=== PATIENT | male | born 1980 | race Caucasian/White ===

== ENCOUNTER 2017-09-25 14:42 | Emergency (ER) | payer BC, SELFPAY ==
--- NOTE | 2017-09-25 16:23 | PC.NURSE ---
AFTER SPEAKING TO PT HE REQUEST TRAMADOL, LAMICTAL AND CT SCAN OF ABD AND FEELS HE NEEDS TO BE SEEN IN THE ED.YANDEL MCDERMOTT
[2017-09-25 16:31] VITALS: BP 119/74; PULSE 85; RESP 20; TEMP 36.9; O2SAT 98; BMI 22.3
[2017-09-25 16:38] LABS: UTC Influenza A Antigen Negative (Negative); UTC Influenza B Antigen Positive (Negative)
--- NOTE | 2017-09-25 17:17 | HMH.EDUTC ---
[facility] [place]: Influenza Disposition: Home, Self-Care Condition on Discharge: Good Instructions: Influenza Additional Instructions: Increase fluids Rest Since discussed with patient If symptoms worsen or do not improve return to be seen in the ER If symptoms worsen follow-up with primary care this week Tamiflu as ordered No work until next Monday Referrals: Elier Kern MD [Primary Care Provider] - Time of Disposition: 17:20 Medical Decision Making Vital Signs: 09/25/17 16:31 Temperature 98.4 F Temperature Source Temporal Artery Scan Pulse Rate [Brachial] 85 Respiratory Rate 20 Blood Pressure [Right Arm] 119/74 Blood Pressure Mean [Right Arm] 89 Blood Pressure Source [Right Arm] Automatic Cuff Blood Pressure Position [Right Arm] Sitting 02 Sat by Pulse Oximetry 98 Oxygen Delivery Method Room Air - Lab Data Lab Results 09/25/17 16:31: Influenza Type A Ag Negative, Influenza Type B Ag Positive A - Vincenzo Inquiry Pt receiving controlled substance: No [facility] [place] General Chief complaint: Urgent [facility] Stated complaint: fever aches all over Time Seen by Provider: 09/25/17 17:17 Mode of Arrival: Ambulatory Source of Information: Patient Limitations: No Limitations Description of Symptoms (Recalled from Triage Doc. by RN): FEVER, RUNNY NOSE, ACHY JOINTS THAT STARTED LAST MONDAY HEENT Symptoms (Recalled from RN notes): Yes Resp Symptoms (Recalled from RN notes): Yes Skin Symptoms (Recalled from RN notes): No MS Symptoms (Recalled from RN notes): No Functional Status (Recalled from RN notes): NA - History of Present Illness Provider Complaint: 37-year-old male presents for fever, body aches, chills, congestion, nausea, and cough since Monday - Related Data Home Medications Medication Instructions Recorded Confirmed No Known Home Medications [No 09/25/17 09/25/17 Known Home Medications] Allergies Allergy/AdvReac Type Severity Reaction Status Date / Time No Known Allergies Allergy Verified 09/25/17 16:29 - Worker's Comp Is this a Worker's Comp case?: No [facility] History I have reviewed the patient's past medical history: Yes - *Social History Alcohol Intake: never - Psychiatric History Expresses thoughts of harming self/others: None Suicide Plan Description: No Plan ROS Obtained: Yes All systems reviewed & no additional complaints - Constitutional Constitutional: Reports system reviewed and no additional complaints, except as docu, Reports body ache, Reports chills, Reports fever(s), Reports malaise - Eyes Eyes: Reports system reviewed and no additional complaints, except as docu - ENT Ears, Nose, Mouth, and Throat: Reports system reviewed and no additional complaints, except as docu - Cardiovascular Cardiovascular: Reports system reviewed and no additional complaints, except as docu - Respiratory Respiratory: Yes system reviewed and no additional complaints, except as docu, Yes chest congestion, Yes cough - Gastrointestinal Gastrointestingal: Reports: system reviewed and no additional complaints, except as docu - Musculoskeletal Musculoskeletal: Reports system reviewed and no additional complaints, except as docu - Integumentary/Breasts Skin/Breast: Reports system reviewed and no additional complaints, except as docu - Neurologic Neurologic: Reports system reviewed and no additional complaints, except as docu - Endocrine Endocrine: Reports system reviewed and no additional complaints, except as docu - Hematologic/Lymphatic Henatologic/Lymphatic: Reports system reviewed and no additional complaints, except as docu - Allergic/Immunologic Allergic/Immunologic: Reports system reviewed and no additional complaints, except as docu Physical Exam - General General appearance: alert, in no apparent distress - Head Head exam: atraumatic, normocephalic - Eye Eye exam: Present: normal appearance,
--- NOTE | 2017-09-25 17:20 | ED_ITS ---
[facility] [place] Clinical Impression: Influenza Disposition: Home, Self-Care Condition on Discharge: Good Instructions: Influenza Additional Instructions: Increase fluids Rest Since discussed with patient If symptoms worsen or do not improve return to be seen in the ER If symptoms worsen follow-up with primary care this week Tamiflu as ordered No work until next Monday Referrals: Elier Kern MD [Primary Care Provider] - Time of Disposition: 17:20 Medical Decision Making Vital Signs: 09/25/17 16:31 Temperature 98.4 F Temperature Source Temporal Artery Scan Pulse Rate [Brachial] 85 Respiratory Rate 20 Blood Pressure [Right Arm] 119/74 Blood Pressure Mean [Right Arm] 89 Blood Pressure Source [Right Arm] Automatic Cuff Blood Pressure Position [Right Arm] Sitting 02 Sat by Pulse Oximetry 98 Oxygen Delivery Method Room Air - Lab Data Lab Results 09/25/17 16:31: Influenza Type A Ag Negative, Influenza Type B Ag Positive A - Vincenzo Inquiry Pt receiving controlled substance: No [facility] [place] HPI - General Chief complaint: Urgent Treatment Center Stated complaint: fever aches all over Time Seen by Provider: 09/25/17 17:17 Mode of Arrival: Ambulatory Source of Information: Patient Limitations: No Limitations Description of Symptoms (Recalled from Triage Doc. by RN): FEVER, RUNNY NOSE, ACHY JOINTS THAT STARTED LAST MONDAY HEENT Symptoms (Recalled from RN notes): Yes Resp Symptoms (Recalled from RN notes): Yes Skin Symptoms (Recalled from RN notes): No MS Symptoms (Recalled from RN notes): No Functional Status (Recalled from RN notes): NA - History of Present Illness Provider Complaint: 37-year-old male presents for fever, body aches, chills, congestion, nausea, and cough since Monday - Related Data Home Medications Medication Instructions Recorded Confirmed No Known Home Medications [No 09/25/17 09/25/17 Known Home Medications] Allergies Allergy/AdvReac Type Severity Reaction Status Date / Time No Known Allergies Allergy Verified 09/25/17 16:29 - Worker's Comp Is this a Worker's Comp case?: No [facility] History I have reviewed the patient's past medical history: Yes - *Social History Alcohol Intake: never - Psychiatric History Expresses thoughts of harming self/others: None Suicide Plan Description: No Plan ROS Obtained: Yes All systems reviewed & no additional complaints - Constitutional Constitutional: Reports system reviewed and no additional complaints, except as docu, Reports body ache, Reports chills, Reports fever(s), Reports malaise - Eyes Eyes: Reports system reviewed and no additional complaints, except as docu - ENT Ears, Nose, Mouth, and Throat: Reports system reviewed and no additional complaints, except as docu - Cardiovascular Cardiovascular: Reports system reviewed and no additional complaints, except as docu - Respiratory Respiratory: Yes system reviewed and no additional complaints, except as docu, Yes chest congestion, Yes cough - Gastrointestinal Gastrointestingal: Reports: system reviewed and no additional complaints, except as docu - Musculoskeletal Musculoskeletal: Reports system reviewed and no additional complaints, except as docu - Integumentary/Breasts Skin/Breast: Reports sys
== END 2017-09-25 17:31 | disposition home or self-care (01) ==
PROVIDERS: Emergency Provider Nurse Practitioner Family; Family Provider Family Medicine; PCP Family Medicine
DX: J11.1 Influenza due to unidentified influenza virus with other respiratory manifestations (principal)
CPT/HCPCS: 87804; 99201

== ENCOUNTER 2023-04-17 15:06 | Emergency (ER) | payer BC, SELFPAY ==
[2023-04-17 15:07] VITALS: BP 167/76; PULSE 77; RESP 18; O2SAT 98; BMI 23.7
[2023-04-17 15:48] LABS: Microscopic, Urine URINE MICROSCOPIC (MICROSCOPIC)
[2023-04-17 16:00] LABS: Basophils % 0.3 % (0.1-2.0); Eosinophils # 0.2 K/mm3 (0.0-0.4); Eosinophils % 1.8 % (0.1-12.0); Hematocrit 43.6 % (42.0-52.0); Lymphocytes # 1.3 K/mm3 (0.7-4.5); Lymphocytes % 12.4 % (10-50); Mean Corpuscular HGB Conc 34.5 g/dL (31.8-35.4); Mean Corpuscular Volume 87.1 fl (80-94); Mean Platelet Volume 8.3 fl (7.4-10.4); Monocytes # 0.3 K/mm3 (0.1-1.0); Monocytes % 2.7 % (1.7-9.3); Neutrophils # 8.5 K/mm3 (1.8-7.8); Neutrophils % 82.8 % (37.0-80.0); Platelet Count 291 K/mm3 (142-424); Red Blood Count 5.01 M/mm3 (4.60-6.20); Red Cell Distribution Width 13.6 % (11.5-17.5); White Blood Count 10.2 K/mm3 (4.8-10.8)
[2023-04-17 16:05] LABS: Appearance,Urine CLEAR (Clear); Blood, Urine 3+ (Negative); Color,Urine YELLOW (Yellow); Glucose,Urine (UA) Negative (Negative); Ketones,Urine TRACE (Negative); Leukocyte Esterase,Urine Negative (Negative); Nitrate,Urine Negative (Negative); PH,Urine 5.5 (5.0-8.5); Protein,Urine 1+ (Negative); Specific Gravity, Urine >= 1.030 (1.005-1.030); Urobilinogen,Urine 0.2 EU/dl (0.2)
[2023-04-17 16:15] LABS: Chloride 108 mmol/L (98-107); Sodium 140 mmol/L (136-145)
[2023-04-17 16:17] LABS: Blood Urea Nitrogen 20 mg/dl (9-20); Creatinine Clearance Estimated 88 mL/min (50-200); Estimated Glomerular Filt Rate 67 ml/min (>60); GFR (African American) 81 ML/MIN (>60)
[2023-04-17 16:18] LABS: Alanine Aminotransferase 31 U/L (12-78); Albumin Level 4.6 g/dl (3.5-5.0); Albumin/Globulin Ratio 1.8 (1.1-1.8); Alkaline Phosphatase 113 U/L (38-126); Aspartate Amino Transferase 31 U/L (17-59); Bilirubin,Total 0.6 mg/dl (0.2-1.3); Calcium 9.8 mg/dl (8.4-10.2); Carbon Dioxide 19 mmol/L (22.0-30.0); Globulin 2.6 g/dL (1.3-3.2); Glucose 162 mg/dl (74-100); Total Protein,Serum 7.2 g/dl (6.3-8.2)
[2023-04-17 16:33] LABS: Bilirubin,Urine 1+ (Negative)
[2023-04-17 16:34] LABS: Bacteria,Urine Trace /lpf; Mucus,Urine 4+ /lpf; RBC,Urine 20-50 #/hpf (0-3); Squamous Epithelial Cell,Urine Occasional #/hpf (0-5); WBC,Urine Occasional #/hpf (0-3)
[2023-04-17 16:47] VITALS: BP 123/69; PULSE 81; RESP 16; TEMP 36.8; O2SAT 97
--- NOTE | 2023-04-17 16:53 | HMH.EDGENADL ---
Discharge Plan Disposition Patient Disposition: Home, Self-Care Condition: Good Prescriptions Prescriptions: New tamsulosin [Flomax] 0.4 mg capsule 0.4 mg PO DAILY Qty: 30 0RF ketorolac 10 mg tablet 10 mg PO Q8H 5 Days Qty: 15 0RF Referrals Follow up/Referrals: Lily Melgar MD [Primary Care Provider] - See instructions Activity Restrictions/Add. Instructions Additional Instructions/Restrictions: Please follow-up with your urologist, please take the pain medication as needed as well as the Flomax, please return with new or worsening symptoms including dehydration, worsening pain, nausea, vomiting, and inability to keep liquids down. Clinical Impressions Clinical Impression: Urolithiasis Qualifiers: Urinary calculus location: kidney and ureter Qualified Code(s): N20.2 - Calculus of kidney with calculus of ureter Stand Alone Forms Stand Alone Forms: Work/School Release Instructions Patient Instructions: DI for Kidney Stones Discharge ED Provider: Shahram Knight Adult [facility] General Chief complaint: PAIN Stated complaint: Left side pain Time Seen by Provider: 04/17/23 16:53 Mode of Arrival: Ambulatory Source of Information: Patient Limitations: No Limitations Description of Symptoms (Recalled from ER Triage Doc. by RN): pt presents to ED stating today around 1300 he started having left sided flank pain. pt reports a hx of kidney stones. pt states his urine appears darker than normal. History of Present Illness HPI narrative: Patient presents for evaluation of left-sided flank pain acute in onset starting today, moderate in severity, with associated dark urine, no fevers or chills or nausea or vomiting, has had similar symptoms associated with urolithiasis in the past that passed spontaneously. Denies pain elsewhere, no previous therapies. No exacerbating or alleviating factors. Denies blood thinners or other chronic medical issues. Denies trauma, denies any midline back pain. Related Data Previous Rx's Medication Instructions Recorded ketorolac 10 mg tablet 10 mg PO Q8H 5 days #15 tabs 04/17/23 tamsulosin 0.4 mg capsule (Flomax) 0.4 mg PO DAILY #30 caps 04/17/23 Allergies Allergy/AdvReac Type Severity Reaction Status Date / Time No Known Allergies Allergy Verified 09/25/17 16:29 [facility] Disclaimer: The information contained in this section may have been updated after the patient was seen, as this information can be updated by other users. Social History Smoking Status: Never smoker alcohol intake: never current occupational status: other Travel in the last 8 weeks: None ROS Obtained: Yes Systems reviewed as appropriate & no additional complaints except as documented Physical Exam General General appearance: alert and in no apparent distress Head Head exam: atraumatic and normocephalic Eye Eye exam: Present normal appearance Neck Neck exam: Present normal inspection Chest Chest inspection: Present normal inspection and symmetric chest wall rise Respiratory Respiratory exam: Present normal lung sounds bilaterally; Absent respiratory distress Cardiovascular Cardiovascular exam: Present regular rate and normal rhythm Abdominal Exam Abdominal exam: Present soft; Absent distention, tenderness, guarding or rebound Back Exam Back exam: Present CVA tenderness (L) Neurological Exam Neurological exam: Present alert and oriented X3 Psychiatric Psychiatric exam: Present normal affect and normal mood Skin Skin exam: Present warm and dry Medical Decision Making Medical Records Medical records reviewed: Yes I reviewed the patient's medical records. Vincenzo Inquiry Pt receiving controlled substance: No Vital Signs: 04/17/23 15:07 04/17/23 16:47 04/17/23 18:11 Temperature 98.3 F 98.0 F Temperature Source Oral Pulse Rate 81 71 Pulse Rate [Right Radial] 77 Respiratory Rate 18 16 17 Blood Pressure 123/69 115/79 Blood Pressure [Right Arm] 167/[address]
--- NOTE | 2023-04-17 18:00 | PC.NURSE ---
rounded on pt, pt reports nausea and pain free at this time, call button in reach, visitor at BS. states no needs at this time
[2023-04-17 18:11] VITALS: BP 115/79; PULSE 71; RESP 17; TEMP 36.7; O2SAT 98
== END 2023-04-17 18:11 | disposition home or self-care (01) ==
PROVIDERS: Emergency Provider Emergency Medicine; PCP Family Medicine
DX: N20.2 Calculus of kidney with calculus of ureter (principal); R10.9 Unspecified abdominal pain
CPT/HCPCS: 80053; 81001; 85025; 96374; 99285

== ENCOUNTER 2023-11-27 21:23 | Emergency (ER) | payer BC, SELFPAY ==
[2023-11-27 21:25] VITALS: BP 107/86; PULSE 117; RESP 24; TEMP 36.7; O2SAT 98; BMI 26.9
--- NOTE | 2023-11-27 21:41 | ED_ITS ---
<Statement entered by Barbara Lebron DO - 11/28/23 14:54> I was consulted by the DEAN, and we discussed the complexity of the problems being addressed. I approved the treatment and management plan for this patient's care in the emergency department, thus performing a substantive portion of the medical decision making. Barbara Lebron DO Discharge Plan Disposition Patient Disposition: Home, Self-Care Condition: Good Prescriptions Prescriptions: New doxycycline hyclate 100 mg capsule 100 mg PO BID 10 Days Qty: 20 0RF No Action tamsulosin [Flomax] 0.4 mg capsule 0.4 mg PO DAILY Qty: 30 0RF ketorolac 10 mg tablet 10 mg PO Q8H 5 Days Qty: 15 0RF Referrals Follow up/Referrals: Lily Melgar MD [Primary Care Provider] - See instructions Activity Restrictions/Add. Instructions Additional Instructions/Restrictions: Follow-up with PCP in 2 to 3 days for reevaluation. Alternate 1000 mg of Tylenol with Motrin every 4 hours as needed for symptoms. Return to ER for any worsening or change of symptoms. Clinical Impressions Clinical Impression: Arthralgia Tick bite of back Qualifiers: Encounter type: initial encounter Qualified Code(s): S30.860A - Insect bite (nonvenomous) of lower back and pelvis, initial encounter Discharge ED Provider: Barbara Lebron General Adult HPI <JAQUELIN Maciel - Last Filed: 11/27/23 22:58> General Chief complaint: Animal Bite Stated complaint: joint pain, fever, headache tick bite Time Seen by Provider: 11/27/23 21:32 Mode of Arrival: Family Vehicle Source of Information: Patient Limitations: No Limitations Description of Symptoms (Recalled from ER Triage Doc. by RN): Found a tick on his back 1 1/2 hrs ago. Stated that his hips have been hurting since yesterday. Had a fever at home that was 100.5 and took ibupofen for that. History of Present Illness HPI narrative: Patient presents for 24-hour history of his bilateral hips hurting . Patient indicates his bilateral inguinal area. Patient also reports a fever of 100.8 yesterday that he took Motrin for. Additionally patient found a tick on his back that he was able to remove intact. Patient denies chest pain shortness of breath chills hemoptysis hematochezia melena nausea vomiting diarrhea. He denies any trauma or excessive physical labor. Related Data Previous Rx's Medication Instructions Recorded ketorolac 10 mg tablet 10 mg PO Q8H 5 days #15 tabs 04/17/23 tamsulosin 0.4 mg capsule (Flomax) 0.4 mg PO DAILY #30 caps 04/17/23 doxycycline hyclate 100 mg capsule 100 mg PO BID 10 days #20 caps 11/27/23 Allergies Allergy/AdvReac Type Severity Reaction Status Date / Time No Known Allergies Allergy Verified 09/25/17 16:29 PFS <JAQUELIN Maciel - Last Filed: 11/27/23 22:58> [facility] Disclaimer: The information contained in this section may have been updated after the patient was seen, as this information can be updated by other users. Social History (Updated 04/18/23 @ 15:34 by Shahram Knight MD) Smoking Status: Never smoker alcohol intake: never current occupational status: other Travel in the last 8 weeks: None <JAQUELIN Maciel - Last Filed: 11/27/23 22:58> ROS Obtained: Yes Systems reviewed as appropriate & no additional complaints except as documented Physical Exam <JAQUELIN Maciel - Last Filed: 11/27/23 22:58> General General appearance: alert and in no apparent distress Head Head exam: atraumatic and normal inspection Eye Eye exam: Present normal appearance, PERRL and EOMI ENT ENT exam: Present normal exam, normal oropharynx and mucous membranes moist Neck Neck exam: Present normal inspection and full ROM; Absent lymphadenopathy Chest Chest inspection: Present normal inspection and symmetric chest wall rise Respiratory Respiratory exam: Present normal lung sounds bilaterally; Absent accessory muscle use Cardiovascular Cardiovascular exam: Present normal rhythm, tachycardia, normal heart sounds, +S1 and +S2 Abdominal Exam Abdominal exam: Present soft and normal bowel sounds; Absent tenderness, guarding or rebound exam: Present normal inspection and normal testicular lie; Absent testicular tenderness, urethral discharge or scrotal swelling Extremities Exam Extremities exam: Present normal inspection and full ROM Back Exam Back exam: Present normal inspection and full ROM Neurological Exam Neurological exam: Present alert, oriented X3 and CN II-XII intact Psychiatric Psychiatric exam: Present normal affect and normal mood Skin Skin exam: Present warm, dry and normal color Lymphatic Lymphatic Findings: no adenopathy Other Other exam information: Spot where tick was removed is marked with a [place]. There is no target lesion there is no erythema there is no rash or visible bite david. Tick is alive in a jar with the patient and all parts appear to be intact. Tick is not engorged with blood and is very small. Palpation of the inguinal area reveals no masses no lymphadenopathy and is nontender to palpation. Medical Decision Making <JAQUELIN Maciel - Last Filed: 11/27/23 22:58> Medical Records Medical records reviewed: Yes I reviewed the patient's medical records. Vincenzo Inquiry Pt receiving controlled substance: No Vital Signs: 11/27/23 21:25 11/27/23 22:58 Temperature 98.1 F 98.0 F Temperature Source Oral Oral Pulse Rate 82 Pulse Rate [Right Radial] 117 H Respiratory Rate 24 19 Blood Pressure 128/86 Blood Pressure [Right Arm] 107/86 L Blood Pressure Mean [Right Arm] 93 Blood Pressure Source Automatic Cuff Blood Pressure Position Sitting 02 Sat by Pulse Oximetry 98 Oxygen Delivery Method Room Air Room Air Lab Data Lab results reviewed: Yes I reviewed the patient's lab results. Lab Results 11/27/23 21:50: WBC 8.3, RBC 4.88, Hgb 14.7, Hct 44.5, MCV 91.3, MCH 30.0, MCHC 32.9, RDW 13.4, Plt Count 200, MPV 8.2, Neut % (Auto) 87.5 H, Lymph % (Auto) 7.6 L, [place] % (Auto) 3.3, Eos % (Auto) 0.9, Baso % (Auto) 0.7, Neut # (Auto) 7.2, L ymph # (Auto) 0.6 L, [place] # (Auto) 0.3, Eos # (Auto) 0.1, Baso # (Auto) 0.1, Total Counted 100, Neutrophils % (Manual) 87 H, Lymphocytes % (Manual) 8 L, Monocytes % (Manual) 5, Platelet Estimate Normal, RBC Morphology Normal, D-Dimer 0.69 H, Sodium 138, Potassium 3.8, Chloride 104, Carbon Dioxide 23, Anion Gap 14.8, BUN 17, Creatinine 1.10, Estimated Creat Clear 109, Estimated GFR 74, Est GFR ( Amer) 89, Glucose 130 H, Calcium 9.3, Total Bilirubin 0.9, AST 30, ALT 45, Alkaline Phosphatase 71, Troponin I < 0.01, C-Reactive Protein 33.2 H, Total Protein 6.8, Albumin 4.4, Globulin 2.4, Albumin/Globulin Ratio 1.8, TSH 0.34 L, Thyroxine (T4) 5.9 11/27/23 22:28: SARS-CoV-2 (PCR) Not detected, Influenza A Untype (PCR) Not detected, Influenza Type B (PCR) Not detected 11/27/23 21:50 11/27/23 21:50 Orders (Tests/Meds): ED MEDICATIONS Discontinued Medications Generic Name Dose Route Start Last Admin Trade Name Freq PRN Reason Stop Dose Admin Acetaminophen 1,000 mg 11/27/23 21:42 11/27/23 21:56 Acetaminophen 1,000mg/100ml Vial IV 11/27/23 21:43 1,000 mg ONCE ONE Administration Doxycycline Hyclate 100 mg 11/27/23 21:54 11/27/23 21:58 Doxycycline Hycl 100 Mg Tablet PO 11/27/23 21:55 100 mg ONCE ONE Administration Lactated Ringer's 1,000 mls @ 999 mls/hr 11/27/23 21:42 11/27/23 21:56 Lactated Ringer's 1000 Ml Bag IV 11/27/23 22:42 999 mls/hr .Q1H1M ONE Administration Ketorolac Tromethamine 15 mg 11/27/23 21:42 11/27/23 21:56 Ketorolac 30mg/Ml Vial IV 11/27/23 21:43 15 mg ONCE ONE Administration ORDERS Category Date Time Status CBC w/Auto Diff [Complete Blood Count Auto Diff] Stat Lab 11/27/23 21:50 Completed CMP [Comprehensive Metabolic Panel] Stat Lab 11/27/23 21:50 Completed CRP [C-Reactive Protein] Stat Lab 11/27/23 21:50 Completed D-Dimer Stat Lab 11/27/23 21:50 Completed Lyme B. burgdorferi PCR Blood Stat Lab 11/27/23 21:50 Received Rapid PCR Covid and Flu A/B Stat Lab 11/27/23 22:28 Completed T4 (Thyroxine) Stat Lab 11/27/23 21:50 Completed TSH [Thyroid Stimulating Hormone] Stat Lab 11/27/23 21:50 Completed Trop I [Troponin I] Stat Lab 11/27/23 21:50 Completed Medical Decision Narrative: In summary patient is a 43-year-old male who presents to the emergency department for evaluation of bilateral hip pain, headache and being bit by a tick. Patient is tachycardic but otherwise hemodynamically stable with an O2 sat of 98% on room air respiratory rate is 24 upon arrival, with a temperature of 98.1. Physical exam is unremarkable and nonfocal including no evidence of lymphadenopathy anywhere, no tenderness to palpation or range of motion testing of his hips, site where tick was is circled by pen line with no evidence of target lesion erythema edema fluctuance.. Differential diagnosis includes arthralgia, tickborne illness viral or bacterial illness, urinary tract infection, kidney stone etc. Initial workup will be conducted with hematologic labs rapid COVID and flu swabs and Lyme titer. Initial interventions include Tylenol and Toradol IV fluid bolus initial workup reviewed by me shows a normal white count with a normal absolute neutrophil count but lymphopenia, patient has an elevated CRP of 33 and a slightly elevated D-dimer but further workup is excluded by years criteria. Upon repeat evaluation patient has had interval improvement of his constitutional symptoms and now has no headache and has reduction in his bilateral hip pain after administration of Toradol Tylenol and a fluid bolus. Tachycardia is now resolving with fluid challenge and he has a heart rate under 120 and is currently around 100 and shows sinus tachycardia on the monitor. COVID and flu tests are negative. Given this we have ruled out any significant life-threatening or serious injury and this is likely represents acute inflammatory response that is responsive to NSAIDs and fluid challenge. Patient have follow-up closely with his PCP return to ER as needed. <Barbara Lebron, DO - Last Filed: 11/28/23 14:55> Vital Signs: 11/27/23 21:25 11/27/23 22:58 Temperature 98.1 F 98.0 F Temperature Source Oral Oral Pulse Rate 82 Pulse Rate [Right Radial] 117 H Respiratory Rate 24 19 Blood Pressure 128/86 Blood Pressure [Right Arm] 107/86 L Blood Pressure Mean [Right Arm] 93 Blood Pressure Source Automatic Cuff Blood Pressure Position Sitting 02 Sat by Pulse Oximetry 98 Oxygen Delivery Method Room Air Room Air Lab Data Lab Results 11/27/23 21:50: WBC 8.3, RBC 4.88, Hgb 14.7, Hct 44.5, MCV 91.3, MCH 30.0, MCHC 32.9, RDW 13.4, Plt Count 200, MPV 8.2, Neut % (Auto) 87.5 H, Lymph % (Auto) 7.6 L, [place] % (Auto) 3.3, Eos % (Auto) 0.9, Baso % (Auto) 0.7, Neut # (Auto) 7.2, L ymph # (Auto) 0.6 L, [place] # (Auto) 0.3, Eos # (Auto) 0.1, Baso # (Auto) 0.1, Total Counted 100, Neutrophils % (Manual) 87 H, Lymphocytes % (Manual) 8 L, Monocytes % (Manual) 5, Platelet Estimate Normal, RBC Morphology Normal, D-Dimer 0.69 H, Sodium 138, Potassium 3.8, Chloride 104, Carbon Dioxide 23, Anion Gap 14.8, BUN 17, Creatinine 1.10, Estimated Creat Clear 109, Estimated GFR 74, Est GFR ( Amer) 89, Glucose 130 H, Calcium 9.3, Total Bilirubin 0.9, AST 30, ALT 45, Alkaline Phosphatase 71, Troponin I < 0.01, C-Reactive Protein 33.2 H, Total Protein 6.8, Albumin 4.4, Globulin 2.4, Albumin/Globulin Ratio 1.8, TSH 0.34 L, Thyroxine (T4) 5.9 11/27/23 22:28: SARS-CoV-2 (PCR) Not detected, Influenza A Untype (PCR) Not detected, Influenza Type B (PCR) Not detected Orders (Tests/Meds): ED MEDICATIONS Discontinued Medications Generic Name Dose Route Start Last Admin Trade Name Dayday PRN Reason Stop Dose Admin Acetaminophen 1,000 mg 11/27/23 21:42 11/27/23 21:56 Acetaminophen 1,000mg/100ml Vial IV 11/27/23 21:43 1,000 mg ONCE ONE Administration Doxycycline Hyclate 100 mg 11/27/23 21:54 11/27/23 21:58 Doxycycline Hycl 100 Mg Tablet PO 11/27/23 21:55 100 mg ONCE ONE Administration Lactated Ringer's 1,000 mls @ 999 mls/hr 11/27/23 21:42 11/27/23 21:56 Lactated Ringer's 1000 Ml Bag IV 11/27/23 22:42 999 mls/hr .Q1H1M ONE Administration Ketorolac Tromethamine 15 mg 11/27/23 21:42 11/27/23 21:56 Ketorolac 30mg/Ml Vial IV 11/27/23 21:43 15 mg ONCE ONE Administration ORDERS Category Date Time Status CBC w/Auto Diff [Complete Blood Count Auto Diff] Stat Lab 11/27/23 21:50 Completed CMP [Comprehensive Metabolic Panel] Stat Lab 11/27/23 21:50 Completed CRP [C-Reactive Protein] Stat Lab 11/27/23 21:50 Completed D-Dimer Stat Lab 11/27/23 21:50 Completed Lyme B. burgdorferi PCR Blood Stat Lab 11/27/23 21:50 Received Rapid PCR Covid and Flu A/B Stat Lab 11/27/23 22:28 Completed T4 (Thyroxine) Stat Lab 11/27/23 21:50 Completed TSH [Thyroid Stimulating Hormone] Stat Lab 11/27/23 21:50 Completed Trop I [Troponin I] Stat Lab 11/27/23 21:50 Completed ECG Data Tracing #1: I reviewed this ECG and interpreted as documented below: Sinus tachycardia with a ventricular rate of [address] changes concerning for ischemia. normal intervals. ECG initial impression date: 11/27/23 ECG initial impression time: 21:56 Critical Care <JAQUELIN Maciel - Last Filed: 11/27/23 22:58> Critical Care Time Critical Care Time: No
--- NOTE | 2023-11-27 21:54 | ECG_ITS ---
APPROVED REPORT Exam: Resting ECG HR:114 bpm ECG Measurements Heart Rate 114 AXES PA 169 P 59 QRSd 102 QRS 34 QT 311 T 60 QTc 379 Conclusion SINUS TACHYCARDIA Electronically signed by : OSVALDO HARDWICK, 11/28/2023 23:08:55
[2023-11-27] MEDS: LACTATED RINGERS 1000ML 1,000 ML 999 ML IV (21:56)
[2023-11-27] MEDS: KETOROLAC 30MG/ML VIAL 15 MG IV (21:56)
[2023-11-27] MEDS: ACETAMINOPHEN 1,000MG/100ML VIAL 1000 MG IV (21:56)
[2023-11-27] MEDS: DOXYCYCLINE HYCL 100 MG TABLET PO (21:58)
[2023-11-27 21:59] LABS: Basophils # 0.1 K/mm3 (0-0.2); Basophils % 0.7 % (0.1-2.0); Eosinophils # 0.1 K/mm3 (0.0-0.4); Eosinophils % 0.9 % (0.1-12.0); Hematocrit 44.5 % (42.0-52.0); Hemoglobin 14.7 g/dL (14.1-18.0); Lymphocytes # 0.6 K/mm3 (0.7-4.5); Lymphocytes % 7.6 % (10-50); Mean Corpuscular HGB Conc 32.9 g/dL (31.8-35.4); Mean Corpuscular Volume 91.3 fl (80-94); Mean Platelet Volume 8.2 fl (7.4-10.4); Monocytes # 0.3 K/mm3 (0.1-1.0); Monocytes % 3.3 % (1.7-9.3); Neutrophils # 7.2 K/mm3 (1.8-7.8); Neutrophils % 87.5 % (37.0-80.0); Platelet Count 200 K/mm3 (142-424); Red Blood Count 4.88 M/mm3 (4.60-6.20); Red Cell Distribution Width 13.4 % (11.5-17.5); White Blood Count 8.3 K/mm3 (4.8-10.8)
[2023-11-27 22:03] LABS: MANUAL DIFFERENTIAL MANUAL DIFFERENTIAL (MANUAL DIFF)
[2023-11-27 22:07] LABS: Alanine Aminotransferase 45 U/L (12-78); Albumin Level 4.4 g/dl (3.5-5.0); Albumin/Globulin Ratio 1.8 (1.1-1.8); Alkaline Phosphatase 71 U/L (38-126); Anion Gap 14.8 mEq/L (5-15); Aspartate Amino Transferase 30 U/L (17-59); Bilirubin,Total 0.9 mg/dl (0.2-1.3); Blood Urea Nitrogen 17 mg/dl (9-20); Calcium 9.3 mg/dl (8.4-10.2); Carbon Dioxide 23 mmol/L (22.0-30.0); Chloride 104 mmol/L (98-107); Creatinine Clearance Estimated 109 mL/min (50-200); Estimated Glomerular Filt Rate 74 ml/min (>60); GFR (African American) 89 ML/MIN (>60); Globulin 2.4 g/dL (1.3-3.2); Glucose 130 mg/dl (74-100); Potassium 3.8 mmoL/L (3.5-5.1); Sodium 138 mmol/L (136-145); Total Protein,Serum 6.8 g/dl (6.3-8.2)
[2023-11-27 22:12] LABS: C-Reactive Protein 33.2 mg/L (0-4); D-Dimer 0.69 ug/mL (0.0-0.5)
[2023-11-27 22:22] LABS: Lymphocytes % 8 % (10-50); Monocytes % 5 % (2-9); Neutrophils % 87 % (42-76); Platelet Estimate Normal; RBC Morphology Normal; Total Cells Counted 100; Troponin I < 0.01 ng/ml (0.00-0.034)
[2023-11-27 22:33] LABS: Coronavirus 19, PCR Not Detected (NotDetected); Influenza A, PCR Not Detected (NotDetected); Influenza B, PCR Not Detected (NotDetected)
[2023-11-27 22:40] LABS: Thyroid Stimulating Hormone 0.34 uIU/mL (0.465-4.68)
[2023-11-27 22:58] VITALS: BP 128/86; PULSE 82; RESP 19; TEMP 36.7; O2SAT 98
[2023-11-27 23:09] LABS: T4 (Thyroxine) 5.9 ug/dl (5.53-11.0)
[2023-12-01 00:09] LABS: Lyme B. burgdorferi PCR Blood Negative (Negative)
== END 2023-11-27 23:03 | disposition home or self-care (01) ==
PROVIDERS: Physician Assistant; Emergency Provider Emergency Medicine; PCP Family Medicine
DX: R00.0 Tachycardia, unspecified (principal); M25.551 Pain in right hip; M25.552 Pain in left hip; R51.9 Headache, unspecified; S30.860A Insect bite (nonvenomous) of lower back and pelvis, initial encounter; W57.XXXA Bitten or stung by nonvenomous insect and other nonvenomous arthropods, initial encounter
CPT/HCPCS: 80053; 84436; 84443; 84484; 85007; 85025; 85378; 86140; 87476; 87636; 93005; 96361; 96374; 96375; 99284; J0131